=== PATIENT | male | born 1945 | race Caucasian/White ===

== ENCOUNTER 2020-03-05 00:19 | Outpatient (CLI) | payer MEDICARE, BC, SELFPAY ==
[2020-03-05 17:48] LABS: SARS-CoV-2 RNA PCR Negative
== END 2020-03-05 00:20 | disposition home or self-care (01) ==
LOC: ANHCOVIDDT 00:20
PROVIDERS: PCP Internal Medicine; Visit Provider Internal Medicine Gastroenterology
DX: Z01.812 Encounter for preprocedural laboratory examination (principal); Z20.828 Contact with and (suspected) exposure to other viral communicable diseases
CPT/HCPCS: 87635; C9803; U0003

== ENCOUNTER 2020-03-08 01:39 | Day surgery (SDC) | payer MEDICARE, BC, SELFPAY ==
[2020-03-01 13:48] VITALS: BMI 34.9
[2020-03-08 08:29] VITALS: BP 179/50; PULSE 58; RESP 58; TEMP 36.4; O2SAT 98; BMI 34.0
--- NOTE | 2020-03-08 08:43 | WPDANESEPPF ---
Anes - Initial Pre Proc Eval Procedure: Operation Date: 03/08/20 09:30 Proposed Procedures p Screening Colonoscopy - Milind Mcpherson MD Date/Time: 03/08/20 08:43 Surgeon: Milind Mcpherson MD Pre Op Diagnosis: Hx Colon Polyps Patient Data Age: 74 Gender: M Height: 5 ft 10 in Weight: 107.7 kg Last Vital Signs Temp 36.4 C 03/08/20 08:29 Pulse 58 L 03/08/20 08:29 Resp 58 H 03/08/20 08:29 BP 179/50 H 03/08/20 08:29 Pulse Ox 98 03/08/20 08:29 Allergies Allergy/AdvReac Type Severity Reaction Status Date / Time No Known Allergies Allergy Unknown Verified 03/08/20 08:28 Home Medications Medication Instructions Recorded Confirmed Type amlodipine-benazepril 1 cap PO DAILY 03/01/20 03/01/20 History aspirin [Adult Low Dose Aspirin] 81 mg PO DAILY 03/01/20 03/01/20 History atorvastatin 80 mg PO DAILY 03/01/20 03/01/20 History dapagliflozin [Farxiga] 10 mg PO DAILY 03/01/20 03/01/20 History etodolac 400 mg PO BID 03/01/20 03/01/20 History montelukast 10 mg PO DAILY 03/01/20 03/01/20 History poxhdqhy-jzg-nmjul-vit K-lycop 1 tablet PO DAILY 03/01/20 03/01/20 History [Men's Multivitamin] nebivolol [Bystolic] 10 mg PO DAILY 03/01/20 03/01/20 History sitagliptin [Januvia] 100 mg PO DAILY 03/01/20 03/01/20 History tamsulosin 0.4 mg PO DAILY 03/01/20 03/01/20 History trazodone 50 mg PO HS 03/01/20 03/01/20 History Patient hx anesthesia problems: none Family hx anesthesia problems: none PMFSH Past Medical History Medical History (Updated 03/08/20 @ 08:44 by Donnell Rivas MD) CAD (coronary artery disease) Diabetes HTN (hypertension) Morbid obesity CRISTOFER (obstructive sleep apnea) Surgical History Surgical History (Updated 03/08/20 @ 08:44 by Donnell Rivas MD) Hx of CABG Family History Family History Mother Patient's mother is Social History Social History Smoking status: Former smoker Smoking end date: 09/24/93 Gender identity (if verbalized by the patient): Male Anes - Eval Final PreProcedure Day of Procedure 03/08/20 08:43 Patient weight: obese Heart: regular rate and rhythm Lungs: clear to auscultation Airway: Mallampati scale class II and other (upper denture) Neurological: alert and oriented Last oral intake: >/= 8 hours ASA classification: III Emergent: no Anesthetic plan: proceed Anesthesia type and monitoring: general GIVS and standard monitoring Informed Consent: The patient's anesthetic plan and its attendant risks and benefits were discussed with the patient/family/POA. Questions were solicited and answers provided to the satisfaction of the patient/family/POA.
[2020-03-08] MEDS: LACTATED RINGERS 1,000 ML 150 ML IV CONT (08:58)
[2020-03-08 08:59] LABS: Glucose Point of Care 134 (65-105)
--- NOTE | 2020-03-08 09:34 | P.HP_ITS ---
History of Present Illness History of Present Illness Consent: Risks, benefits, and alternatives have been discussed and questions answered. Patient agrees to proceed with procedure. Chief complaint: Hx Colon Polyps Narrative: Vinayak Lantigua is a 74 year old W male referred for screening colonoscopy secondary history of colonic polyps. Last colonoscopy was 5 years ago. No family history of colon polyps or colon cancer. Patient is asymptomatic. [facility] Past Medical History Medical History (Updated 03/08/20 @ 08:44 by Donnell Rivas MD) CAD (coronary artery disease) Diabetes HTN (hypertension) Morbid obesity CRISTOFER (obstructive sleep apnea) Surgical History Surgical History (Updated 03/08/20 @ 08:44 by Donnell Rivas MD) Hx of CABG Family History Family History Mother Patient's mother is Social History Social History Smoking status: Former smoker Smoking end date: 09/24/93 Gender identity (if verbalized by the patient): Male Meds Home Medications and Allergies Home Medications Medication Instructions Recorded Confirmed Type amlodipine-benazepril 1 cap PO DAILY 03/01/20 03/01/20 History aspirin [Adult Low Dose Aspirin] 81 mg PO DAILY 03/01/20 03/01/20 History atorvastatin 80 mg PO DAILY 03/01/20 03/01/20 History dapagliflozin [Farxiga] 10 mg PO DAILY 03/01/20 03/01/20 History etodolac 400 mg PO BID 03/01/20 03/01/20 History montelukast 10 mg PO DAILY 03/01/20 03/01/20 History dlcbhhag-zpm-fehls-vit K-lycop 1 tablet PO DAILY 03/01/20 03/01/20 History [Men's Multivitamin] nebivolol [Bystolic] 10 mg PO DAILY 03/01/20 03/01/20 History sitagliptin [Januvia] 100 mg PO DAILY 03/01/20 03/01/20 History tamsulosin 0.4 mg PO DAILY 03/01/20 03/01/20 History trazodone 50 mg PO HS 03/01/20 03/01/20 History Allergies Allergy/AdvReac Type Severity Reaction Status Date / Time No Known Allergies Allergy Unknown Verified 03/08/20 08:28 Vital Signs Vital Signs - 24 hr 03/08/20 08:29 Temperature 36.4 C Pulse Rate 58 L Respiratory Rate 58 H Blood Pressure 179/50 H Pulse Oximetry 98 Exam Const: Orientation/consciousness: patient oriented x3 Resp: Auscultation: clear to auscultation bilaterally Cardio: Rate: regular rate Rhythm: regular rhythm Heart sounds: no murmurs GI: GI Palp: Yes Soft to palpation, No Tenderness to palpation present (GI), Yes No hepatosplenomegaly present and No Palpable mass present Auscultation: normal bowel sounds Neuro: General: patient oriented x3 and no focal motor deficits Extrem: General: no pedal edema Assessment and Plan Additional Plan Screening colonoscopy secondary history of colonic polyps
[2020-03-08] MEDS: SIMETHICONE ORAL SUSPENSION 20 MG/0.3 ML 30 ML BOTTLE 0.6 ML IRRIGATION (10:21)
[2020-03-08 10:32] VITALS: BP 136/61; PULSE 62; RESP 16; O2SAT 95
[2020-03-08 10:42] VITALS: BP 157/69; PULSE 61; RESP 16; O2SAT 95
[2020-03-08 10:52] VITALS: BP 154/72; PULSE 64; RESP 16; O2SAT 95
== END 2020-03-08 11:18 | disposition home or self-care (01) ==
PROVIDERS: PCP Internal Medicine; Visit Provider Internal Medicine Gastroenterology
PROC: 0DJD8ZZ Inspection of Lower Intestinal Tract, Via Natural or Artificial Opening Endoscopic (ICD-10-PCS; CPT 45378; principal; 2020-03-08 09:30)
DX: Z12.11 Encounter for screening for malignant neoplasm of colon (principal); K57.30 Diverticulosis of large intestine without perforation or abscess without bleeding; K64.8 Other hemorrhoids; K64.4 Residual hemorrhoidal skin tags; Z86.010 Personal history of colon polyps; I10 Essential (primary) hypertension; I25.10 Atherosclerotic heart disease of native coronary artery without angina pectoris; E11.9 Type 2 diabetes mellitus without complications; G47.33 Obstructive sleep apnea (adult) (pediatric); E66.01 Morbid (severe) obesity due to excess calories; Z68.34 Body mass index [BMI] 34.0-34.9, adult; Z87.891 Personal history of nicotine dependence; Z95.1 Presence of aortocoronary bypass graft; Z79.84 Long term (current) use of oral hypoglycemic drugs
CPT/HCPCS: G0105; J2001; J2704; J7120

== ENCOUNTER 2022-04-03 10:26 | Outpatient (CLI) | payer MEDICARE, BC, SELFPAY ==
[2022-04-03 11:16] LABS: Alanine Aminotransferase 27 U/L (6-50); Aspartate Amino Transferase 25 U/L (17-59)
== END 2022-04-03 10:27 | disposition home or self-care (01) ==
LOC: ANHLAB 10:29
PROVIDERS: PCP Internal Medicine; Visit Provider Podiatrist Foot & Ankle Surgery
DX: B35.1 Tinea unguium (principal)
CPT/HCPCS: 36415; 84450; 84460

== ENCOUNTER 2022-04-11 03:04 | Emergency (ER) | payer MEDICARE, BC, SELFPAY ==
--- NOTE | ~2022-04-11 | XR_ITS ---
EXAMINATION: XR hip RT min 3V w AP pelvis DATE: 04/11/2022 04:27 INDICATION: Right hip pain post fall TECHNIQUE: Anteroposterior view of the pelvis and anteroposterior and frog leg lateral views of the r ight hip were obtained. COMPARISON: CT abdomen and pelvis dated 09/22/2012 FINDINGS: Bone alignment is normal. No fracture. 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 Moderate lower lumbar spondylosis. Moderate atherosclerotic calcifications at the proximal thighs. Surgical clips at the medial aspect of the proximal right thigh likely related to prior saphenous vei n graft harvest. IMPRESSION: 1. No acute osseous abnormality. Reviewed, dictated and finalized at location A.
--- NOTE | ~2022-04-11 | XR_ITS ---
EXAMINATION: XR knee RT 3V DATE: 04/11/2022 04:28 INDICATION: Right knee pain post fall TECHNIQUE: Anteroposterior, oblique and crosstable lateral views of the right knee were obtained COMPARISON: None. FINDINGS: Alignment is normal. No fracture. No joint effusion/layering lipohemarthrosis. Mild joint space narr owing in the medial compartment and tiny marginal osteophytes along the patellofemoral compartment co nsistent with at least mild osteoarthritis although severity of joint space narrowing can be underest imated on nonweightbearing imaging. Surgical clips along the medial aspect of the knee likely related to prior saphenous vein graft harvest. Mild scattered atherosclerotic calcification along the arteri es of the distal thigh and proximal calf. Soft tissues are otherwise unremarkable. IMPRESSION: 1. No right knee joint effusion or acute osseous abnormality. Reviewed, dictated and finalized at location A.
--- NOTE | ~2022-04-11 | CT_ITS ---
EXAMINATION: CT lumbar spine wo con DATE: 04/11/2022 04:08 INDICATION: Back pain. Fall. TECHNIQUE: Computed tomography (CT) of the lumbar spine was performed without intravenous contrast. A utomated exposure control and iterative reconstruction technique were employed. The dose-length produ ct was 1065.47 mGy-cm. COMPARISON: CT lumbar spine 04/01/2019 FINDINGS: There is 6 degrees levocurvature of lumbar spine. Vertebral body heights are normal. There is moderately decreased disc height at L4-L5 and severely decreased disc height at L5-S1 with endplat e remodeling. The following disc levels are specifically discussed: L1-L2: The disc does not extend beyond the endplate margin. There is mild bilateral facet joint osteo arthritis. There is no neural foraminal stenosis. There is no central canal stenosis. L2-L3: The disc is bulging. There is severe bilateral facet joint osteoarthritis. There is mild right neural foraminal stenosis. There is mild central canal stenosis. L3-L4: The disc is bulging. There is moderate bilateral facet joint osteoarthritis. There is mild rafa ateral neural foraminal stenosis. There is mild central canal stenosis. L4-L5: The disc is bulging. There is severe right and mild left facet joint osteoarthritis. There is moderate right and mild left neural foraminal stenosis. There is mild central canal stenosis. L5-S1: The disc is bulging. There is moderate bilateral facet joint osteoarthritis. There is moderate bilateral neural foraminal stenosis. There is mild central canal stenosis. IMPRESSION: 1. Severe lower lumbar spondylosis, stable from 04/01/2019. Reviewed, dictated and finalized at location A.
[2022-04-11 03:08] VITALS: BP 135/59; PULSE 94; RESP 18; TEMP 36.6; O2SAT 97
--- NOTE | 2022-04-11 03:54 | ED.GENADULT ---
HPI - General Adult General Chief complaint: Fall Stated complaint: fall - back pain, right leg pain Time Seen by Provider: 04/11/22 03:30 History of Present Illness HPI narrative: Patient 76-year-old gentleman who presents the emergency department with chief complaint of fall. The patient reports he was walking through the house this morning and slipped on a rug. The patient states he fell backwards and landed on his back and also reports pain in his right hip and his right knee. Patient denies being on blood thinners reports no loss of consciousness denies head injury patient states the pain in the back is worse with movement and improved with rest patient states that he has pain in the right hip and pain in the right knee patient states it is worse with movement and improved with rest Related Data Home Medications Medication Instructions Recorded Confirmed amlodipine 5 mg-benazepril 10 mg 1 cap PO DAILY 03/01/20 07/12/21 capsule aspirin 81 mg tablet,delayed 81 mg PO DAILY 03/01/20 07/12/21 release (Adult Low Dose Aspirin) atorvastatin 80 mg tablet 80 mg PO DAILY 03/01/20 07/12/21 dapagliflozin 10 mg tablet 10 mg PO DAILY 03/01/20 07/12/21 (Farxiga) etodolac 400 mg tablet 400 mg PO BID 03/01/20 07/12/21 montelukast 10 mg tablet 10 mg PO DAILY 03/01/20 07/12/21 agmhshcg-ouedtdpo-pfwoe acid 400 1 tablet PO DAILY 03/01/20 07/12/21 mcg-vit K 20 mcg-lycop 300 mcg tablet (Men's Multivitamin) nebivolol 10 mg tablet (Bystolic) 10 mg PO DAILY 03/01/20 07/12/21 tamsulosin 0.4 mg capsule 0.4 mg PO DAILY 03/01/20 07/12/21 trazodone 50 mg tablet 50 mg PO HS 03/01/20 07/12/21 Allergies Allergy/AdvReac Type Severity Reaction Status Date / Time metformin AdvReac Diarrhea Verified 04/11/22 03:48 Review of Systems Review of Systems: A 10 system review of systems was completed on the patient and is negative except for what is stated in the HPI. Nursing and ancillary documentation was reviewed. [facility] Past Medical History Medical History CAD (coronary artery disease) Diabetes HTN (hypertension) Morbid obesity CRISTOFER (obstructive sleep apnea) Surgical History Surgical History History of appendectomy Hx of CABG Family History Family History Mother Patient's mother is Social History Social History Smoking status: Former smoker Smoking end date: 09/24/93 Alcohol intake: never Substance use: never Gender identity (if verbalized by the patient): Male Exam Narrative: GENERAL: Well-appearing, well-nourished, and in no acute distress. HEAD: Normocephalic, atraumatic. EYES: PERRLA and EOMI. ENT: Nares clear, no rhinorrhea or epistaxis. Mucous membranes moist. NECK: Supple. CHEST: Clear to auscultation. No respiratory distress. HEART: Regular rate and rhythm. No murmur heard. Normal peripheral pulses. ABDOMEN: Soft, nontender, nondistended, normal active bowel sounds. EXTREMITIES: Normal range of motion. No edema. There is tenderness to palpation of the right hip and tenderness to palpation of the right knee SKIN: Warm, dry, no rash. NEURO: No focal deficits. Alert and oriented x3. PSYCH: Normal mood and affect. Course Vital Signs Vital signs: Vital Signs Temperature 36.6 C 04/11/22 03:08 Pulse Rate 94 04/11/22 03:08 Respiratory Rate 18 04/11/22 03:08 Blood Pressure 135/59 L 04/11/22 03:08 Pulse Oximetry 97 04/11/22 03:08 Oxygen Delivery Room Air 04/11/22 03:08 Temperature 36.6 C 04/11/22 03:08 Pulse Rate 84 04/11/22 04:33 Respiratory Rate 18 04/11/22 04:33 Blood Pressure 131/53 L 04/11/22 04:33 Pulse Oximetry 96 04/11/22 04:33 Oxygen Delivery Room Air 04/11/22 03:08 Medical Decis
[2022-04-11 04:33] VITALS: BP 131/53; PULSE 84; RESP 18; O2SAT 96
[2022-04-11] MEDS: HYDROcodone/acetaminophen (*CRX) 5-325 MG TABLET 1 TAB PO (05:24)
--- NOTE | 2022-04-11 05:35 | PC.NURSE ---
Pt able to ambulate with steady gait without assistance from staff.
[2022-04-11 05:40] VITALS: BP 148/51; PULSE 82; RESP 16; O2SAT 96
== END 2022-04-11 05:40 | disposition home or self-care (01) ==
PROVIDERS: Emergency Provider Emergency Medicine; PCP Internal Medicine
DX: S39.012A Strain of muscle, fascia and tendon of lower back, initial encounter (principal); S70.01XA Contusion of right hip, initial encounter; S80.01XA Contusion of right knee, initial encounter; I25.10 Atherosclerotic heart disease of native coronary artery without angina pectoris; E11.9 Type 2 diabetes mellitus without complications; I10 Essential (primary) hypertension; W01.0XXA Fall on same level from slipping, tripping and stumbling without subsequent striking against object, initial encounter
CPT/HCPCS: 72131; 73502; 73562; 99284; A9270

== ENCOUNTER 2022-04-13 09:31 | Emergency (ER) | payer MEDICARE, BC, SELFPAY ==
--- NOTE | ~2022-04-13 | CT_ITS ---
EXAMINATION: CT abdomen pelvis w con DATE: 04/13/2022 12:47 INDICATION: Diarrhea for 3 weeks. Right lower quadrant abdominal pain. TECHNIQUE: Computed tomography (CT) of the abdomen and pelvis was performed without intravenous contr ast. Automated exposure control and iterative reconstruction technique were employed. Exam dose: 910 .15 mGy-cm total exam DLP. COMPARISON: None. FINDINGS: There is bilateral peripheral reticular prominence of the lower lungs, which may be due to usual interstitial pneumonia interstitial fibrosis. Normal heart size. No pericardial or pleural effusion. Scattered hepatic and splenic calcified granulomas consistent with old granulomatous disease. 8 mm hepatic dome cyst. The liver, gallbladder, bile ducts, pancreas, pancreatic duct and spleen are otherwise unremarkable. Normal morphology of the adrenal glands. No renal mass lesion or urinary tract calculus or hydroureteronephrosis. The urinary bladder is evacu ated. Mild prostate enlargement. There is atherosclerotic calcification of the abdominal aorta and prominent calcification at the orig ins of the celiac and superior mesenteric arteries in addition to calcification of the more distal po rtion of each of these arteries. There is calcification at the origins of the renal arteries, especia lly on the right. No abdominal aortic aneurysm. No intraperitoneal or retroperitoneal or pelvic mass lesion or adenopathy or ascites is detected. The appendix is not visualized. There is diffuse circumferential soft tissue thickening of the colon wall and occasional colonic air-fluid levels, suggesting nonspecific colitis, possibly infectious or inflammatory. The terminal ileum appears unremarkable. No small bowel dilatation. No bowel obstructio n or intraperitoneal free air. Multilevel degenerative disc disease of the lumbar spine, most prominent at L5-S1. Diffuse idiopathic skeletal hyperostosis of the thoracolumbar spine. No suspicious osteolytic or osteoblastic lesions are noted. IMPRESSION: Diffuse circumferential moderate thickening of the wall of the colon, suggesting colitis , possibly infectious or inflammatory, less likely ischemic Extensive abdominal aortic, celiac, superior mesenteric and renal and iliac and femoral arterial calc ifications; no abdominal aortic aneurysm Calcified granulomas of spleen and liver Reviewed, dictated and finalized at Location A. Reviewed, dictated and finalized at location B. IMPRESSION: Diffuse circumferential moderate thickening of the wall of the col on, suggesting colitis, possibly infectious or inflammatory, less likely ischem ic Extensive abdominal aortic, celiac, superior mesenteric and renal and iliac and femoral arterial calcifications; no abdominal aortic aneurysm Calcified granulomas of spleen and liver
[2022-04-13 09:34] VITALS: BP 192/75; PULSE 120; RESP 18; TEMP 36.9; O2SAT 99
[2022-04-13 09:39] VITALS: O2SAT 97
--- NOTE | 2022-04-13 09:44 | ED.GENADULT ---
HPI - General Adult General Chief complaint: Unspecified Stated complaint: pcp sent here for fluids Time Seen by Provider: 04/13/22 09:41 Source: patient Mode of arrival: ambulatory Limitations: no limitations History of Present Illness HPI narrative: Patient is a 76-year-old male who presents the ED with report of diarrhea. 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 He last had an infusion 3 weeks ago and has been having persistent diarrhea since then. He reports having multiple episodes of watery diarrhea today. No blood in stool. He had blood work done at an outpatient facility 2 days ago and was notified by PCP today to come to the ED for fluids. Patient reports having nausea at home, but denies vomiting. He has been able to drink and eat. Does report some lower abdominal pain. Denies any urinary symptoms, fever, chills. Related Data Home Medications Medication Instructions Recorded Confirmed amlodipine 5 mg-benazepril 10 mg 1 cap PO DAILY 03/01/20 07/12/21 capsule aspirin 81 mg tablet,delayed 81 mg PO DAILY 03/01/20 07/12/21 release (Adult Low Dose Aspirin) atorvastatin 80 mg tablet 80 mg PO DAILY 03/01/20 07/12/21 dapagliflozin 10 mg tablet 10 mg PO DAILY 03/01/20 07/12/21 (Farxiga) etodolac 400 mg tablet 400 mg PO BID 03/01/20 07/12/21 montelukast 10 mg tablet 10 mg PO DAILY 03/01/20 07/12/21 yerxgbqx-tvzpwfto-eoqcn acid 400 1 tablet PO DAILY 03/01/20 07/12/21 mcg-vit K 20 mcg-lycop 300 mcg tablet (Men's Multivitamin) nebivolol 10 mg tablet (Bystolic) 10 mg PO DAILY 03/01/20 07/12/21 tamsulosin 0.4 mg capsule 0.4 mg PO DAILY 03/01/20 07/12/21 trazodone 50 mg tablet 50 mg PO HS 03/01/20 07/12/21 Allergies Allergy/AdvReac Type Severity Reaction Status Date / Time metformin AdvReac Diarrhea Verified 04/11/22 03:48 Review of Systems Review of Systems: CONSTITUTIONAL: Denies fever, chills, or sweats. CARDIOVASCULAR: Denies chest pain. RESPIRATORY: Denies dyspnea. GASTROINTESTINAL: Reports lower abdominal pain, nausea, diarrhea. Denies rectal bleeding, vomiting. GENITOURINARY: Denies dysuria or hematuria. SKIN: Denies rash or itching. MUSCULOSKELETAL: Denies back pain, joint pain, or myalgia. NEUROLOGIC: Denies numbness, or weakness. All systems reviewed & are unremarkable except as noted in HPI and below PMFSH Past Medical History Medical History (Updated 04/13/22 @ 14:23 by Sasha Kim PA-C) CAD (coronary artery disease) Diabetes HTN (hypertension) Rosemarie cell carcinoma Morbid obesity CRISTOFER (obstructive sleep apnea) Surgical History Surgical History History of appendectomy Hx of CABG Family History Family History Mother Patient's mother is Social History Social History Smoking status: Former smoker Smoking end date: 09/24/93 Alcohol intake: never Substance use: never Gender identity (if verbalized by the patient): Male Exam Narrative: GENERAL: Well appearing, obese, non-toxic, in no acute distress. HEAD: Normocephalic, atraumatic. THROAT: Pharynx clear, no exudate. MMs mildly dry. NECK: Supple. No adenopathy, no masses. RESPIRATORY: Airway patent, respirations nonlabored. Clear to auscultation bilaterally, no rales, rhonchi, wheezing. CARDIOVASCULAR: Tachycardia with regular rhythm without murmurs, rubs, or gallops. Peripheral pulses 2+ and equal bilaterally. ABDOMINAL: Soft, mild tenderness to palpation in RLQ where patient reports previous radiation therapy, nondistended, no hepatosplenomegaly. Normoactive BS. MUSCULOSKELETAL: Moves all extremities. Strength/ROM intact without gross deformities. No edema. SKIN: Warm, dry, normal color. No rashes. NEURO: A&O X3. Speech clear. Cranial nerves II-XII grossly intact. Steady gait. No
[2022-04-13 09:45] VITALS: O2SAT 94
[2022-04-13 09:47] VITALS: BP 153/59; O2SAT 94
[2022-04-13 10:01] VITALS: BP 168/63; O2SAT 96
[2022-04-13 10:02] VITALS: O2SAT 93
[2022-04-13 10:13] LABS: Basophils Percent Auto 0.5 % (0.2-1.2); Hematocrit 38.9 % (42.0-52.0); Hemoglobin 12.8 g/dL (14.0-18.0); Immature Granulocyte Absolute 0.01 K/mm3 (0.00-0.031); Immature Granulocyte Percent A 0.2 % (0-0.5); Lymphocytes Absolute Auto 0.23 K/mm3 (0.9-3.2); Lymphocytes Percent Auto 5.3 % (18.3-44.2); Mean Corpuscular HGB Conc 32.9 g/dl (32-36); Mean Corpuscular Volume 94.2 fl (80-100); Mean Platelet Volume 8.4 fl (7.4-10.4); Monocytes Absolute Auto 0.8 K/mm3 (0.1-0.6); Monocytes Percent Auto 18.8 % (2.6-8.5); Neutrophils Absolute Auto 3.2 K/mm3 (1.3-6.7); Neutrophils Percent Auto 75.2 % (45.5-73.1); Platelet Count Result 173 k/mm3 (150-375); Red Blood Count 4.13 M/mm3 (4.6-6.20); Red Cell Distribution Width 13.6 % (11.5-14.5); White Blood Count 4.3 K/mm3 (4.5-10.0)
[2022-04-13 10:14] LABS: Appearance Urine Slightly Cloudy (Clear); Bilirubin Urine 3+ (Negative); Blood Urine Negative (Negative); Color Urine Yellow (Yellow); Glucose Urine UA 3+ mg/dL (Negative); Ketones Urine 1+ mg/dL (Negative); Leukocyte Esterase Ur Negative LEU/UL (Negative); Nitrate Urine Negative (Negative); Protein Urine 1+ mg/dL (Negative); Specific Grav Ur 1.025 (1.001-1.035); Urobilinogen Urine 0.2 mg/dL (<2.0)
[2022-04-13 10:22] LABS: Add Urine Microscopic? YES
[2022-04-13 10:25] LABS: Alanine Aminotransferase 24 U/L (6-50); Albumin Level 3.9 g/dL (3.5-5.1); Alkaline Phosphatase 104 U/L (38-126); Anion Gap 8 mmol/L (8-16); Aspartate Amino Transferase 29 U/L (17-59); Bilirubin,Total 0.9 mg/dL (0.2-1.3); Blood Urea Nitrogen 24 mg/dL (9-20); Calcium 8.9 mg/dL (8.4-10.2); Carbon Dioxide 21 mmol/L (22-30); Chloride 104 mmol/L (98-107); Estimated CRCL calculation 53 ml/min; Estimated Glomerular Filt Rate 59; Glucose 150 mg/dL (65-110); Lipase 26 U/L (23-300); Potassium 4.5 mmol/L (3.4-5.0); Sodium 133 mmol/L (137-145)
[2022-04-13 10:33] LABS: Hyaline Casts Urine 50+ /lpf; Mucus Urine Heavy /lpf; Squamous Epithelial Cell Urine Rare /hpf (Few)
[2022-04-13] MEDS: SODIUM CHLORIDE 0.9% IV 1,000 ML 999 ML IV CONT ×2 (10:44→13:34)
[2022-04-13 14:18] LABS: Lactic Acid Reflex 1.4 mmol/L (0.7-2.0)
== END 2022-04-13 14:53 | disposition home or self-care (01) ==
PROVIDERS: Physician Assistant; Emergency Provider General Practice; PCP Internal Medicine
DX: K52.9 Noninfective gastroenteritis and colitis, unspecified (principal); C4A.9 Merkel cell carcinoma, unspecified; I25.10 Atherosclerotic heart disease of native coronary artery without angina pectoris; E11.9 Type 2 diabetes mellitus without complications; G47.33 Obstructive sleep apnea (adult) (pediatric); E66.01 Morbid (severe) obesity due to excess calories; Z68.31 Body mass index [BMI] 31.0-31.9, adult; Z95.1 Presence of aortocoronary bypass graft; Z87.891 Personal history of nicotine dependence; I70.0 Atherosclerosis of aorta; I70.1 Atherosclerosis of renal artery; K55.1 Chronic vascular disorders of intestine; I70.8 Atherosclerosis of other arteries; Z79.82 Long term (current) use of aspirin
CPT/HCPCS: 36415; 74177; 80053; 81001; 83605; 83690; 85025; 96360; 96361; 99284; J7030; Q9967